=== PATIENT | female | born 1970 | race Caucasian/White ===

== ENCOUNTER 2020-12-21 11:15 | Outpatient (REF) | payer BC, SELFPAY ==
--- NOTE | 2020-12-21 11:20 | MM_ITS ---
EXAMINATION: MM SCREENING DIGITAL BREAST TOMOSYNTHESIS, BILATERAL CLINICAL INFORMATION: Screening. Asymptomatic. The lifetime risk of breast cancer based on the Tyrer-Cuzick Model is 7%. COMPARISON: Mammography: 04/21/2019, 04/15/2018, 04/01/2018, 02/26/2017 TECHNIQUE: Digital breast tomosynthesis is performed in both the craniocaudal and mediolateral oblique views along with computer-aided detection (CAD). Synthesized 2D images are generated from the tomosynthesis. FINDINGS: The breasts are heterogeneously dense, which may obscure small masses (ACR BI-RADS breast composition Category c). There are no significant masses, abnormal calcifications, or other abnormalities. Breast tissue composition borders on average fibroglandular. No developing density. The axilla and skin contours are unremarkable. MM/MM tomosynthesis screening BI IMPRESSION: No mammographic evidence of malignancy. ASSESSMENT: BI-RADS 1: Negative RECOMMENDATION: Routine annual mammography screening. This patient's information was entered into a reminder system with a target due date for their next mammogram.
== END 2020-12-21 11:16 | disposition home or self-care (01) ==
LOC: HO.MAMMO 11:15
PROVIDERS: PCP Family Medicine; Visit Provider Family Medicine
DX: Z12.31 Encounter for screening mammogram for malignant neoplasm of breast (principal)
CPT/HCPCS: 77063; 77067

== ENCOUNTER 2022-02-27 09:58 | Outpatient (REF) | payer OTHER, SELFPAY ==
--- NOTE | ~2022-02-27 | MM_ITS ---
EXAMINATION: MM SCREENING DIGITAL BREAST TOMOSYNTHESIS, BILATERAL CLINICAL INFORMATION: Screening. Asymptomatic. The lifetime risk of breast cancer based on the Tyrer-Cuzick Model is 10%. COMPARISON: Mammography: 12/21/2020, 04/21/2019, 04/15/2018, 04/01/2018 TECHNIQUE: Digital breast tomosynthesis is performed in both the craniocaudal and mediolateral oblique views along with computer-aided detection (CAD). Synthesized 2D images are generated from the tomosynthesis. FINDINGS: The breasts are heterogeneously dense, which may obscure small masses (ACR BI-RADS breast composition Category c). There are no significant masses, abnormal calcifications, or other abnormalities. Breast parenchymal pattern borders on average fibroglandular. Parenchymal pattern is similar to prior studies. No significant changes MM/MM tomosynthesis screening BI IMPRESSION: No mammographic evidence of malignancy. ASSESSMENT: BI-RADS 1: Negative RECOMMENDATION: Routine annual mammography screening. This patient's information was entered into a reminder system with a target due date for their next mammogram.
== END 2022-02-27 09:59 | disposition home or self-care (01) ==
LOC: HO.MAMMO 09:58
PROVIDERS: PCP Family Medicine; Visit Provider Family Medicine
DX: Z12.31 Encounter for screening mammogram for malignant neoplasm of breast (principal)
CPT/HCPCS: 77063; 77067

== ENCOUNTER 2023-03-05 09:55 | Outpatient (REF) | payer BC, SELFPAY ==
--- NOTE | ~2023-03-05 | MM_ITS ---
EXAMINATION: MM SCREENING DIGITAL BREAST TOMOSYNTHESIS, BILATERAL CLINICAL INFORMATION: Screening. Asymptomatic. The lifetime risk of breast cancer based on the Tyrer-Cuzick Model is 9%. COMPARISON: Mammography: 02/27/2022, 12/21/2020, 04/21/2019, 04/15/2018, 04/01/2018 TECHNIQUE: Digital breast tomosynthesis is performed in both the craniocaudal and mediolateral oblique views along with computer-aided detection (CAD). Synthesized 2D images are generated from the tomosynthesis. FINDINGS: The breasts are heterogeneously dense, which may obscure small masses (ACR BI-RADS breast composition Category c). There are no significant masses, abnormal calcifications, or other abnormalities. Breast tissue composition borders on average fibroglandular. Parenchymal pattern is similar to prior studies and there is no developing density or architectural abnormality or abnormal calcifications. The axilla and skin contours are unremarkable. MM/MM tomosynthesis screening BI IMPRESSION: No mammographic evidence of malignancy. ASSESSMENT: BI-RADS 1: Negative RECOMMENDATION: Routine annual mammography screening. This patient's information was entered into a reminder system with a target due date for their next mammogram.
== END 2023-03-05 09:56 | disposition home or self-care (01) ==
LOC: HO.MAMMO 09:55
PROVIDERS: PCP Family Medicine; Visit Provider Family Medicine
DX: Z12.31 Encounter for screening mammogram for malignant neoplasm of breast (principal)
CPT/HCPCS: 77063; 77067

== ENCOUNTER 2024-03-30 09:11 | Outpatient (REF) | payer BC, SELFPAY ==
--- NOTE | ~2024-03-30 | MM_ITS ---
EXAMINATION: MM SCREENING DIGITAL BREAST TOMOSYNTHESIS, BILATERAL CLINICAL INFORMATION: Screening. Asymptomatic. COMPARISON: Mammography: 03/05/2023, 02/27/2022, 12/21/2020, 04/21/2019, 04/15/2018, 04/01/2018 TECHNIQUE: Digital breast tomosynthesis is performed in both the craniocaudal and mediolateral oblique views along with computer-aided detection (CAD). Synthesized 2D images are generated from the tomosynthesis. FINDINGS: The breasts are heterogeneously dense, which may obscure small masses (ACR BI-RADS breast composition Category c). There are no suspicious masses, suspicious grouped calcifications, or areas of architectural distortion in either breast. The parenchymal pattern is stable from prior exams. No suspicious skin or axillary abnormality. MM/MM tomosynthesis screening BI IMPRESSION: No mammographic evidence of malignancy. No interval change. ASSESSMENT: BI-RADS BI-RADS 1 - Negative RECOMMENDATION: Routine annual mammography screening. 1 year F/U This examination should not preclude the clinical evaluation of a suspicious palpable abnormality. This patient's information was entered into a reminder system with a target due date for their next mammogram.
== END 2024-03-30 09:12 | disposition home or self-care (01) ==
LOC: HO.MAMMO 09:11
PROVIDERS: Visit Provider Family Medicine
DX: Z12.31 Encounter for screening mammogram for malignant neoplasm of breast (principal)
CPT/HCPCS: 77063; 77067

== ENCOUNTER → 2024-03-30 09:15 | Outpatient (BNV) | payer BC, SELFPAY | PROVIDERS: Visit Provider Radiology Diagnostic Radiology | DX: Z12.31 Encounter for screening mammogram for malignant neoplasm of breast (principal) | CPT/HCPCS: 77063; 77067 ==

== ENCOUNTER 2024-04-02 07:23 | Day surgery (SDC) | payer BC, SELFPAY ==
[2023-12-17 13:51] VITALS: BMI 31.8
[2024-04-02 08:20] VITALS: BP 118/71; PULSE 73; RESP 16; TEMP 36.9; O2SAT 99; BMI 31.8
--- NOTE | 2024-04-02 08:30 | P.CONAN_ITS ---
Documented by User: Tia Claros NP 04/01/24 10:37 HPI - Anesthesia Eval Consult details Narrative: 54yo F for ?Colonoscopy [facility] Past Medical History Medical History (Updated 12/17/23 @ 13:50 by Micheline Charles RN) No pertinent past medical history Surgical History Surgical History Hx of cholecystectomy H/O colonoscopy Social History Social History (Updated 12/17/23 @ 13:52 by Micheline Charles RN) Household Members: Spouse Patient Tobacco Use Status: Never used Tobacco Use of substances other than those prescribed or required for medical reasons: No Are you DNR?: No Advance Directives: No Advance Directives Information Provided: Yes Meds Allergies Allergy/AdvReac Type Severity Reaction Status Date / Time Penicillins [PENICILLINS] Allergy Intermediate HIVES,RASH Verified 04/02/24 08:16 Home Medications ?Medication ?Instructions ?Recorded ?Confirmed ?Last Taken ?Type multivitamin 1 tab PO DAILY 12/17/23 04/02/24 Unknown History Exam Height,Weight and Vital Signs: Height 5 ft 4 in Weight 83.915 kg Assessment and Plan Assessment Anesthesia Assessment: Chart Reviewed Documented by User: Radha Nathan DO 04/02/24 08:32 [facility] Past Medical History Medical History (Updated 12/17/23 @ 13:50 by Micheline Charles RN) No pertinent past medical history Family History Family history of problems with anesthesia: No Surgical History Surgical History Hx of cholecystectomy H/O colonoscopy History of Problems with Anesthesia: No Social History Social History (Updated 12/17/23 @ 13:52 by Micheline Charles RN) Household Members: Spouse Patient Tobacco Use Status: Never used Tobacco Use of substances other than those prescribed or required for medical reasons: No Are you DNR?: No Advance Directives: No Advance Directives Information Provided: Yes Meds Allergies Allergy/AdvReac Type Severity Reaction Status Date / Time Penicillins [PENICILLINS] Allergy Intermediate HIVES,RASH Verified 04/02/24 08:16 Home Medications ?Medication ?Instructions ?Recorded ?Confirmed ?Last Taken ?Type multivitamin 1 tab PO DAILY 12/17/23 04/02/24 Unknown History Exam Exam Date and Time: April 02, 2024 0830 Height,Weight and Vital Signs: Height 5 ft 4 in Weight 83.915 kg Height 5 ft 4 in Weight 83.915 kg Vital Signs Temperature 98.4 F 04/02/24 08:20 Pulse Rate 73 04/02/24 08:20 Respiratory Rate 16 04/02/24 08:20 Blood Pressure 118/71 04/02/24 08:20 Pulse Oximetry 99 04/02/24 08:20 Oxygen Delivery Method Room Air 04/02/24 08:20 Temperature 98.4 F 04/02/24 08:20 Pulse Rate 73 04/02/24 08:20 Respiratory Rate 16 04/02/24 08:20 Blood Pressure 118/71 04/02/24 08:20 Pulse Oximetry 99 04/02/24 08:20 Oxygen Delivery Method Room Air 04/02/24 08:20 Airway Mallampati Class: II TM Dist: >3cm Neck ROM: Full Loose/Missing/Broken Teeth: No (patient denies any loose or broken teeth) Heart: S1S2 Lungs: CTAB Assessment and Plan Assessment Anesthesia Assessment: Anesthesia Plan Discussed and Chart Reviewed Final Anesthetic Review Family History of Problems with Anesthesia: No History of Problems with Anesthesia: No NPO: Yes ASA Class: I Final Preanesthetic Review: No Changes in Pt Med Stat, Meds/Allgs Chart Reviewed, Consent Obtained/Reviewed and Anes Risks/Benef Reviewed Patient Risk: Low Procedure Risk: Low Anesthetic Plan Anesthetic Plan: MAC: and Agree w/ Assess. and Plan Disposition: Standard PACU
[2024-04-02] MEDS: Lactated Ringers 1,000 ML 100 ML IVCONT (08:31)
[2024-04-02 09:41] VITALS: BP 100/59; PULSE 75; RESP 16; TEMP 36.1; O2SAT 98
--- NOTE | 2024-04-02 09:43 | PM.OP ---
Brief Operative Note Date of Service: 04/02/24 Pre-op diagnosis: Screening Post-op diagnosis: other (Diverticulosis) Procedure: Colonoscopy to the cecum and TI Surgeon: Baldo Reeves MD Anesthesia: MAC Was an Commercial Energy Auditor used for this Procedure?: No Estimated blood loss (mL): 0 Pathology: none sent Condition: stable Disposition: PACU
[2024-04-02 09:56] VITALS: BP 106/71; PULSE 69; RESP 18; TEMP 36.1; O2SAT 98
--- NOTE | 2024-04-02 10:09 | OP_ITS ---
DATE OF SERVICE: 04/02/2024 SURGEON: Baldo Reeves MD INDICATIONS: The patient presents for evaluation of colorectal cancer screening and personal history of a tubular adenoma of the colon. Full consent was obtained from her for this, including risks of bleeding and perforation. PREOPERATIVE DIAGNOSIS: POSTOPERATIVE DIAGNOSIS: PROCEDURE PERFORMED: Colonoscopy to cecum and terminal ileum. ESTIMATED BLOOD LOSS: COMPLICATIONS: ANESTHESIA: Monitored anesthesia care. ASSISTANTS: SPECIMENS: PREOPERATIVE DIAGNOSES: Colorectal cancer screening and personal history of tubular adenoma of the colon. POSTOPERATIVE DIAGNOSES: Colorectal cancer screening and personal history of tubular adenoma of the colon, diverticulosis and internal hemorrhoids. DESCRIPTION OF PROCEDURE: The patient was placed in the left lateral decubitus position. The digital rectal exam revealed no abnormalities. The Olympus video pediatric colonoscope was entered into the rectum and advanced easily to the cecum. Once in the cecum, I did identify a normal-appearing cecal pouch with appendiceal orifice and a normal-appearing ileocecal valve. The terminal ileum was cannulated and appeared normal. The scope was withdrawn back in the colon. The entire cecum and ileocecal valve appeared normal. The scope was then slowly withdrawn, assessing all mucosal surfaces carefully. Preparation was excellent. I did not visualize any sign of polyps, colitis, or angiodysplasia. There was a mild amount of sigmoid diverticulosis. In the rectum, scope was retroflexed, visualizing small internal hemorrhoids, but no other pathology. The rectal mucosa appeared normal. The scope was straightened and withdrawn from the patient. She tolerated the procedure well and was returned to the recovery area in stable condition. IMPRESSION: 1. Mild diverticulosis. 2. Small internal hemorrhoids. PLAN: Given her previous history of a tubular adenoma, I would recommend a followup coloscopy in 5 years. She will otherwise see me on a p.r.n. basis. MD NIECY Lyn/JEF / [phone]
== END 2024-04-02 10:43 | disposition home or self-care (01) ==
PROVIDERS: PCP Family Medicine; Visit Provider Internal Medicine
PROC: 0DJD8ZZ Inspection of Lower Intestinal Tract, Via Natural or Artificial Opening Endoscopic (ICD-10-PCS; CPT 45378; principal; 2024-04-02 08:30)
DX: Z12.11 Encounter for screening for malignant neoplasm of colon (principal); K57.30 Diverticulosis of large intestine without perforation or abscess without bleeding; K64.8 Other hemorrhoids; Z86.010 Personal history of colon polyps
CPT/HCPCS: 45378; J2704

== ENCOUNTER 2025-04-07 10:42 | Outpatient (REF) | payer BC, SELFPAY ==
--- OUTSIDE RECORDS SUMMARY | 2025-04-07 11:49 | XMS_ITS ---
Author Organization [facility] Address [address] [place] [phone] Care Team Providers Care Histology Supervisor Name Role Phone Nathalie Davis M.D. Primary Care Provider Un available Baldo Reeves Unavailable [phone] REASON FOR VISIT rescheduled colonoscopy Encounters Encounter Location Date Provider Diagnosis [facility] [address] [place] [phone] 12/22/2023 Baldo Reeves Plan Of Treatment No Information Progress Notes * LUDIVINA MORROWDOB:1970 (53 yo F)Acc No.[id number]:12/22/2023 Patient:?LUDIVINA MORROW :1970???Age:53 Y???Sex:Female Address:[address] [place] [address], [address] * true * Date:? Generated for Isacc gage/Jeff/eTransmitting on:?04/07/2025 11:49 AM EDT
--- OUTSIDE RECORDS SUMMARY | 2025-04-07 11:50 | XMS_ITS ---
Author Organization [facility] Address [address] [place] [address] Care Team Providers Care Print Graphic Designer Name Role Phone Nathalie Davis M.D. Primary Care Provider Un available Baldo Reeves Unavailable [phone] REASON FOR VISIT colon screening Problems Problem Type SNOMED Code ICD Code Onset Dates Problem Status W/U Status Risk Notes Problem History of polyp of colon (situation) (917586432) Personal history of colonic polyps (Z86.010) Active confirmed Problem Diverticular disease of colon (225548890) Diverticulosis of large intestine without perforation or abscess without bleeding (K57.30) Active confirmed Encounters Encounter Location Date Provider Diagnosis [facility] [place] [address] [place], [place] [phone] 04/02/2024 Baldo Reeves Encounter for scre ening colonoscopy Z12.11 ; Personal history of colonic polyps Z86.010 ; Diverticulosis of large intestine without perforation or abscess without bleeding K57.30 and Internal hemorrhoids K64.8 Assessments Encounter Date Diagnosis (ICD Code) Assessment Notes Treatment Notes Treatment Clinical Notes Section Notes 04/02/2024 Encounter for screening colonoscopy (ICD-10 - Z12.11) 04/02/2024 Personal history of colonic polyps (ICD-10 - Z86.010) 04/02/2024 Diverticulosis of large intestine without perforation or abscess without bleeding (ICD-10 - K57.30) 04/02/2024 Internal hemorrhoids (ICD-10 - K64.8) Plan Of Treatment No Information Progress Notes * ELAN MORROWB:1970 (55 yo F)Acc No.[id number]:04/02/2024 COLON WITH MAC Patient:LUDIVINA KAY Provider:?Baldo Reeves MD :1970???Age:54 Y???Sex:Female D ate:04/02/2024 Address:[address] [place], [place] [id number] Pcp:Nathalie Davis M.D. Subjective: * Chief Complaints: * ???1. Colon screening. * Medical History:? Objective: * Vitals:? Assessment: * Assessment: 1.?Encounter for screening c olonoscopy - Z12.11 (Primary)???2.?Personal history of colonic polyps - Z86.010???3.?Diverticulosis of large intestine without perforation or abscess without bleeding - K57.30???4.?Internal hemorrhoids - K64.8??? Plan: * Treatment: * Procedure Codes:?21162 DIAGN OSTIC COLONOSCOPY, Modifiers: 33 * Preventive Medicine:? ??SIL Screening:?Colonoscopy?Was interval between colonoscopies three years or more??No due to Medical Reason,?Was last colonoscopy performed three or more years ago??No due to Medical Reason.? * * The named appointment provid er may or may not be the originator of this progress note, and it is not deemed complete until electronically signed by the appointment provider. Sign off status: Pending * Provider:?Baldo Reeves MD Date:? 024 Generated for Isacc gage/Jeff/eTransmitting on:?04/07/2025 11:49 AM EDT
--- OUTSIDE RECORDS SUMMARY | 2025-04-07 11:50 | XMS_ITS ---
Author Organization [facility] Address [address] [place] [phone] Care Team Providers Care Sewage Screen Operator Name Role Phone Ryan Bird, Nathalie Primary Care Provider Un available Baldo Reeves Unavailable [phone] REASON FOR VISIT screening Encounters Encounter Location Date Provider Diagnosis [facility] [place] [address] [place], [place] [phone] 03/24/2024 Baldo Reeves Plan Of Treatment No Information Progress Notes * LUDIVINA MORROWDOB:1970 (55 yo F)Acc No.[id number]:03/24/2024 COLON WITH MAC Patient:?LUDIVINA MORROW Provider:?Baldo Reeves MD :1970???Age:54 Y???Sex:Female D ate:03/24/2024 Address:[address] [place], [place] [id number] Pcp:Nathalie Davis M.D. Subjective: * Chief Complaints: * ???1. Screening. * Medical History:? Objective: * Vitals:? Assessment: Plan: * Treatment: * * The named appointment provid er may or may not be the originator of this progress note, and it is not deemed complete until electronically signed by the appointment provider. Sign off status: Pending * Provider:?Baldo Reeves MD Date:? 024 Generated for Isacc gage/Jeff/eTransmitting on:?04/07/2025 11:49 AM EDT
--- OUTSIDE RECORDS SUMMARY | 2025-04-07 11:50 | XMS_ITS | Patient Health Record ---
Author Organization [facility] Address [address] [place] [address] Care Team Providers Care Sports Health Club Membership Advisors Name Role Phone Nathalie Davis M.D. Primary Care Provider Un available Baldo Reeves Unavailable [phone] Allergies Allergen (clinical drug ingredient) Drug/Non Drug Allergy documented on EMR Reaction Allergy Type Onset Date Status Penicillin Unknown Drug Allergy Active Reason For Referral No Information Medications Medication SIG (Take, Route, Fr equency, Duration) Notes Start Date End Date Status Multivitamin - 1 tablet Orally Once a day for 30 day(s) Active Social History Tobacco Use: Social History Observation Description Date Details (start date - stop date) Never Smoker NA - NA Tobacco Use/Smoking Question Answer Notes Patient is a nonsmoker Alcohol Screen Question Answer Notes Did you have a drink contain ing alcohol in the past year? Yes How often did you have a dri nk containing alcohol in the past year? Never (0 point) How many drinks did you have on a typical day when you were drinking in the past year? 1 or 2 drinks (0 point) How often did you have 6 or more drinks on one occasion in the past year? Never (0 point) Points 0 Interpretation Negative Problems Problem Type SNOMED Code ICD Code Onset Dates Problem Status W/U Status Risk Notes Problem 601767923 Colon cancer screening (Z12.11) Active confirmed Problem History of polyp of colon (situation) (118945174) Personal history of colonic polyps (Z86.010) Active confirmed Problem Diverticular disease of colon (621797256) Diverticulosis of large intestine without perforation or abscess without bleeding (K57.30) Active confirmed Problem [id number] Preprocedural examination (Z01.818) Active confirmed Problem 883770944 History of colon polyps (Z86.010) Active confirmed Plan Of Treatment Future Test Test Name Order Date COLONOSCOPY 09/23/2023 Insurance Providers Payer Name Payer Address Payer Phone Subscriber Number Group Number Insured Name Patient Relationship to Insured Coverage Start Date Coverage End Date [facility] [employer] [address] [place] [address] [id number] LUDIVINA MORROW Self - patient is the insured Medical (General) History Medical History History ICD Code Denies NM,DM,CVA,Lung disease,renal dise ase [place] age 48 [place] [facility] of [place] Surgical History Surgery Date(Month/Year) Cholecystectomy
== END 2025-04-07 10:43 | disposition home or self-care (01) ==
LOC: HO.MAMMO 10:42
PROVIDERS: PCP Family Medicine; Visit Provider Family Medicine
DX: Z12.31 Encounter for screening mammogram for malignant neoplasm of breast (principal)
CPT/HCPCS: 77063; 77067

== ENCOUNTER → 2025-04-07 10:45 | Outpatient (BNV) | payer BC, SELFPAY | PROVIDERS: PCP Family Medicine; Visit Provider Internal Medicine | DX: Z12.31 Encounter for screening mammogram for malignant neoplasm of breast (principal) | CPT/HCPCS: 77063; 77067 ==